=== PATIENT | male | born 1935 | race Caucasian/White ===

== ENCOUNTER → 2018-12-16 | Outpatient (CLI) | payer MEDICARE ==
[2018-12-16 12:19] LABS: Basophils # (auto) 0 uL; Basophils % (auto) 0.6 % (0.0-2.0); Eosinophils # (auto) 0.1 uL; Eosinophils % (auto) 1.2 % (0.0-7.0); Hemoglobin 15.9 g/dL (13.5-17.5); Lymphocytes # (auto) 1.2 uL; Mean Corpuscular Hemoglobin 30.3 pg (28.0-32.0); Mean Corpuscular Hgb Conc. 33.8 g/dL (32.0-36.0); Mean Corpuscular Volume 89.8 fL (80.0-100.0); Monocytes # (auto) 0.5 uL; Monocytes % (auto) 6.5 % (0.0-12.0); Neutrophils # (auto) 5.6 uL; Neutrophils % (auto) 75.7 % (37.0-80.0); Nucleated Red Blood Cells % 0.2 %; Platelet Count (auto) 247 10^3/uL (140-450); Red Blood Cells 5.23 10^6/uL (4.5-5.90); Red Cell Distribution Width 15.5 % (11.8-14.3); White Blood Cell 7.3 10^3/uL (4.4-10.8)
[2018-12-16 12:32] LABS: INR 1.01 (0.9-1.15); Prothrombin Time 10.8 sec (9.27-12.13)
[2018-12-16 13:15] LABS: Potassium 4.3 mmol/L (3.5-5.1)
[2018-12-16 13:34] LABS: Albumin 4.1 g/dL (3.4-5.0); Bilirubin, Total 0.8 mg/dL (0.2-1.0); Calcium 9.1 mg/dL (8.5-10.1); Total Protein 7.3 g/dL (6.4-8.2)
== END | disposition home or self-care (01) ==
LOC: LAB 10:40
PROVIDERS: ATTEND Internal Medicine
DX: Z01.818 Encounter for other preprocedural examination (principal); E11.9 Type 2 diabetes mellitus without complications; I10 Essential (primary) hypertension; I45.10 Unspecified right bundle-branch block; R00.2 Palpitations
CPT/HCPCS: 36415; 80053; 80061; 83036; 84443; 85025; 85610; 85730

== ENCOUNTER → 2018-12-31 | Outpatient (CLI) | payer MEDICARE ==
[~2018-12-31] VITALS: Ht 188 cm; Wt 94.3 kg
== END | disposition home or self-care (01) ==
LOC: Rad HDHVI 12:52
PROVIDERS: ATTEND Internal Medicine Cardiovascular Disease
DX: R94.31 Abnormal electrocardiogram [ECG] [EKG] (principal)
CPT/HCPCS: 78452; 93017; 96374; A9500

== ENCOUNTER → 2019-01-05 | Outpatient (CLI) | payer MEDICARE | END | disposition home or self-care (01) | LOC: Rad HDHVI 13:08 | PROVIDERS: ATTEND Internal Medicine Cardiovascular Disease | DX: R94.31 Abnormal electrocardiogram [ECG] [EKG] (principal); I11.9 Hypertensive heart disease without heart failure | CPT/HCPCS: 93306; 93880 ==

== ENCOUNTER → 2019-01-28 | Outpatient (CLI) | payer MEDICARE ==
[2019-01-28 14:35] LABS: BUN/Creatinine Ratio 13.7; Calcium 9.1 mg/dL (8.5-10.1); Potassium 4.1 mmol/L (3.5-5.1)
== END | disposition home or self-care (01) ==
LOC: LAB 11:25
PROVIDERS: ATTEND Internal Medicine
DX: E11.9 Type 2 diabetes mellitus without complications (principal)
CPT/HCPCS: 36415; 80048

== ENCOUNTER → 2019-04-20 | Outpatient (CLI) | payer MEDICARE | END | disposition home or self-care (01) | LOC: LAB 10:35 | PROVIDERS: ATTEND Internal Medicine | DX: E11.9 Type 2 diabetes mellitus without complications (principal) | CPT/HCPCS: 82043 ==

== ENCOUNTER → 2019-07-25 | Outpatient (CLI) | payer MEDICARE ==
[2019-07-25 13:05] LABS: Urine Amorphous Crystal MOD /hpf (None Seen); Urine Bacteria NONE SEEN /hpf (None Seen); Urine Blood 1+ /uL (Negative); Urine Mucus FEW (None Seen); Urine Specific Gravity 1.016 (1.001-1.035); Urine WBC 7 /hpf (0 - 3)
== END | disposition home or self-care (01) ==
LOC: LAB 12:31
PROVIDERS: ATTEND Internal Medicine
DX: E11.9 Type 2 diabetes mellitus without complications (principal); I45.10 Unspecified right bundle-branch block; I11.0 Hypertensive heart disease with heart failure; I50.33 Acute on chronic diastolic (congestive) heart failure
CPT/HCPCS: 36415; 81001; 83036; 83880

== ENCOUNTER → 2019-09-23 | Outpatient (CLI) | payer MEDICARE ==
[2019-09-23 12:00] LABS: Urine Bacteria NONE SEEN /hpf (None Seen); Urine Blood Negative /uL (Negative); Urine Specific Gravity 1.011 (1.001-1.035); Urine WBC 3 /hpf (0 - 3)
== END | disposition home or self-care (01) ==
LOC: LAB 11:06
PROVIDERS: ATTEND Internal Medicine
DX: N40.0 Benign prostatic hyperplasia without lower urinary tract symptoms (principal)
CPT/HCPCS: 81001; 84153; 84154

== ENCOUNTER → 2019-10-07 | Outpatient (CLI) | payer MEDICARE | END | disposition home or self-care (01) | LOC: LAB 07:19 | PROVIDERS: ATTEND Urology | DX: R31.9 Hematuria, unspecified (principal); N32.0 Bladder-neck obstruction; N32.89 Other specified disorders of bladder | CPT/HCPCS: 87086 ==

== ENCOUNTER → 2019-11-28 | Outpatient (CLI) | payer MEDICARE | END | disposition home or self-care (01) | LOC: Rad HDHVI 12:51 | PROVIDERS: ATTEND Internal Medicine Cardiovascular Disease | DX: I45.10 Unspecified right bundle-branch block (principal); I10 Essential (primary) hypertension; R06.02 Shortness of breath | CPT/HCPCS: 93306 ==

== ENCOUNTER → 2019-11-29 | Outpatient (CLI) | payer MEDICARE ==
[2019-11-29 14:17] LABS: Basophils # (auto) 0.1 10 ^3/uL (0-0.2); Eosinophils # (auto) 0.2 10 ^3/uL (0-0.8); Eosinophils % (auto) 3.2 % (0.0-7.0); Hematocrit 41.9 % (41.0-53.0); Hemoglobin 14.6 g/dL (13.5-17.5); Lymphocytes # (auto) 1.4 10 ^3/uL (0.4-5.4); Lymphocytes % (auto) 23.9 % (10.0-50.0); Mean Corpuscular Hemoglobin 31.1 pg (28.0-32.0); Mean Corpuscular Hgb Conc. 34.9 g/dL (32.0-36.0); Mean Corpuscular Volume 89.3 fL (80.0-100.0); Monocytes # (auto) 0.5 10 ^3/uL (0-1.3); Monocytes % (auto) 7.6 % (0.0-12.0); Neutrophils # (auto) 3.9 10 ^3/uL (1.6-8.6); Neutrophils % (auto) 64.3 % (37.0-80.0); Platelet Count (auto) 244 10^3/uL (140-450); Red Blood Cells 4.69 10^6/uL (4.5-5.90); Red Cell Distribution Width 15.2 % (11.8-14.3)
[2019-11-29 14:43] LABS: Albumin 3.7 g/dL (3.4-5.0); Bilirubin, Direct 0.1 mg/dL (0-0.2); Calcium 8.7 mg/dL (8.5-10.1); Potassium 4.1 mmol/L (3.5-5.1)
[2019-11-29 14:46] LABS: Bilirubin, Total 0.4 mg/dL (0.2-1.0); Total Protein 6.8 g/dL (6.4-8.2)
== END | disposition home or self-care (01) ==
LOC: LAB 13:57
PROVIDERS: ATTEND Urology
DX: E11.9 Type 2 diabetes mellitus without complications (principal); I10 Essential (primary) hypertension; N32.0 Bladder-neck obstruction; N32.89 Other specified disorders of bladder; R31.9 Hematuria, unspecified
CPT/HCPCS: 36415; 80048; 80076; 82043; 83036; 84153; 85025

== ENCOUNTER → 2020-01-16 | Outpatient (CLI) | payer MEDICARE ==
[~2020-01-16] MED LIST: ASPI81CH43 PO; CHOL20007 OR; ENAL2.5T7 PO; FINA5TAB4 PO; MAGN400T40 OR; TAM04C PO
[2020-01-16 11:54] LABS: Urine Bacteria NONE SEEN /hpf (None Seen); Urine Blood Negative /uL (Negative); Urine Hyaline Cast MOD /lpf (0 - 2); Urine Mucus FEW (None Seen); Urine Specific Gravity 1.013 (1.001-1.035); Urine WBC 2 /hpf (0 - 3)
[2020-01-16 12:20] LABS: Cholesterol 149 mg/dL (< 200); HDL Cholesterol 42 mg/dL (40-59); LDL Cholesterol 84 mg/dL (< 100); Triglycerides 134 mg/dL (< 150)
== END | disposition home or self-care (01) ==
LOC: LAB 11:20
PROVIDERS: ATTEND Internal Medicine
DX: I12.9 Hypertensive chronic kidney disease with stage 1 through stage 4 chronic kidney disease, or unspecified chronic kidney disease (principal); R73.03 Prediabetes; N18.3 Chronic kidney disease, stage 3 (moderate)
CPT/HCPCS: 36415; 80061; 81001

== ENCOUNTER → 2020-02-13 | Outpatient (CLI) | payer MEDICARE ==
[~2020-02-13] VITALS: Ht 188 cm; Wt 98.0 kg
[~2020-02-13] MED LIST changes: +ADENOSINE 82 MG in GIVE UN-DILUTED 0 ML IV ONE; +ADENOSINE 90 MG/30 ML INJ IV ONE; -ASPI81CH43 PO; -CHOL20007 OR; -ENAL2.5T7 PO; -FINA5TAB4 PO; -MAGN400T40 OR; -TAM04C PO
== END | disposition home or self-care (01) ==
LOC: Rad HDHVI 13:48
PROVIDERS: ATTEND Internal Medicine Cardiovascular Disease
DX: I11.0 Hypertensive heart disease with heart failure (principal); I50.33 Acute on chronic diastolic (congestive) heart failure
CPT/HCPCS: 78452; 93005; 96374; 96375; A9500; J0153

== ENCOUNTER → 2020-05-28 | Outpatient (CLI) | payer MEDICARE | END | disposition home or self-care (01) | LOC: LAB 10:57 | PROVIDERS: ATTEND Urology | DX: N40.0 Benign prostatic hyperplasia without lower urinary tract symptoms (principal) | CPT/HCPCS: 84153; 84154 ==

== ENCOUNTER 2020-06-12 15:23 | Inpatient (IN) | payer MEDICARE ==
[~2020-06-12] VITALS: Ht 188 cm; Wt 101.6 kg
[2020-06-12] MEDS ORDERED: ASPirin 81 mg TAB PO ONE (15:45)
[2020-06-12] MEDS ORDERED: SODIUM CHLORIDE 0.9% 1,000 ML IV ONE (15:45)
[2020-06-12 16:07] LABS: Urine Bacteria NONE SEEN /hpf (None Seen); Urine Blood Negative /uL (Negative); Urine Hyaline Cast FEW /lpf (0 - 2); Urine Mucus FEW (None Seen); Urine Specific Gravity 1.014 (1.001-1.035); Urine WBC 4 /hpf (0 - 3)
[2020-06-12] MEDS ORDERED: METOPROLOL TARTRATE 1MG/1ML-5ML VIAL IV ONE (16:15)
[2020-06-12] MEDS ORDERED: METOPROLOL TARTRATE 25 MG TAB PO ONE (16:15)
[2020-06-12 16:24] LABS: Basophils # (auto) 0.1 10 ^3/uL (0-0.2); Basophils % (auto) 0.9 % (0.0-2.0); Eosinophils # (auto) 0.1 10 ^3/uL (0-0.8); Eosinophils % (auto) 1.5 % (0.0-7.0); Hematocrit 43.6 % (41.0-53.0); Lymphocytes % (auto) 14.9 % (10.0-50.0); Mean Corpuscular Hemoglobin 29.9 pg (28.0-32.0); Mean Corpuscular Hgb Conc. 34.4 g/dL (32.0-36.0); Monocytes # (auto) 0.5 10 ^3/uL (0-1.3); Monocytes % (auto) 7.4 % (0.0-12.0); Neutrophils # (auto) 5.2 10 ^3/uL (1.6-8.6); Neutrophils % (auto) 75.3 % (37.0-80.0); Nucleated Red Blood Cells % 0.1 %; Platelet Count (auto) 222 10^3/uL (140-450); Red Blood Cells 5.01 10^6/uL (4.5-5.90)
[2020-06-12 16:37] LABS: Albumin 3.7 g/dL (3.4-5.0); Anion Gap 5 (5-15); Blood Urea Nitrogen 18 mg/dL (7-18); Calcium 8.6 mg/dL (8.5-10.1); Carbon Dioxide 24 mmol/L (21-32); Chloride 111 mmol/L (98-107); Glucose 96 mg/dL (74-106); Potassium 3.9 mmol/L (3.5-5.1); Sodium 140 mmol/L (136-145)
[2020-06-12 16:39] LABS: Alanine Aminotransferase 17 U/L (16-61); Aspartate Aminotransferase 10 U/L (15-37); BUN/Creatinine Ratio 16.7; GFR African American 84 mL/min; GFR Non-African American 70 mL/min
[2020-06-12 16:44] LABS: Alkaline Phosphatase 75 U/L (45-117); Bilirubin, Total 0.8 mg/dL (0.2-1.0); Total Protein 6.3 g/dL (6.4-8.2)
[2020-06-12 16:45] LABS: INR 1.16 (0.9-1.15); Partial Thromboplastin Time 26.5 sec (23.0-31.2)
[2020-06-12] MEDS ORDERED: FUROSEMIDE 20 MG/2 ML VIAL IV ONE (17:45)
[2020-06-12] MEDS ORDERED: NITROGLYCERIN 0.4 MG SL TAB SL PRN (17:45)
[2020-06-12] MEDS ORDERED: MORPHINE SULF INJ 2 MG/ML SYRINGE 1ML IV PRN (17:45)
[2020-06-12] MEDS ORDERED: dilTIAZem HCL 180MG ER CAP PO ONE (17:45)
[2020-06-12] MEDS ORDERED: ENALAPRILAT 1.25 MG/ML-1ML VIAL IV PRN (19:30)
--- NOTE | 2020-06-12 21:03 | NUR ---
pt arrived via w/c from ED. Alert and oriented, walked from the bathroom with no difficulties. Pt is denying and pain or discomfort. No s/s of distress. IV 18 to rt writ patent site benign.
[2020-06-12 21:15] VITALS: BP 135/80
[2020-06-12 22:00] VITALS: BP 135/80
[2020-06-12] MEDS: RAMIPRIL 2.5 MG CAP PO SCH (22:10)
[2020-06-12 23:50] VITALS: BP 135/80
[2020-06-13] MEDS ORDERED: ENAL2.5T7 PO (00:10)
[2020-06-13] MEDS ORDERED: ASPI81CH43 PO (00:10)
[2020-06-13] MEDS ORDERED: FINA5TAB4 PO (00:10)
[2020-06-13] MEDS ORDERED: CHOL20007 OR (00:10)
[2020-06-13] MEDS ORDERED: TAM04C PO (00:10)
[2020-06-13] MEDS ORDERED: MAGN400T40 OR (00:10)
[2020-06-13 05:00] VITALS: BP 146/84
[2020-06-13 05:52] LABS: Basophils # (auto) 0.1 10 ^3/uL (0-0.2); Basophils % (auto) 1.1 % (0.0-2.0); Eosinophils # (auto) 0.2 10 ^3/uL (0-0.8); Eosinophils % (auto) 4.2 % (0.0-7.0); Hematocrit 41.5 % (41.0-53.0); Lymphocytes # (auto) 1.1 10 ^3/uL (0.4-5.4); Lymphocytes % (auto) 19.3 % (10.0-50.0); Mean Corpuscular Hemoglobin 29.4 pg (28.0-32.0); Mean Corpuscular Hgb Conc. 33.8 g/dL (32.0-36.0); Mean Corpuscular Volume 86.9 fL (80.0-100.0); Monocytes # (auto) 0.5 10 ^3/uL (0-1.3); Monocytes % (auto) 9.4 % (0.0-12.0); Neutrophils # (auto) 3.9 10 ^3/uL (1.6-8.6); Nucleated Red Blood Cells % 0.3 %; Platelet Count (auto) 204 10^3/uL (140-450); Red Blood Cells 4.78 10^6/uL (4.5-5.90); Red Cell Distribution Width 15.4 % (11.8-14.3); White Blood Cell 5.8 10^3/uL (4.4-10.8)
[2020-06-13 06:07] LABS: Calcium 8.3 mg/dL (8.5-10.1); Potassium 3.7 mmol/L (3.5-5.1)
[2020-06-13 06:10] LABS: BUN/Creatinine Ratio 18.2
--- NOTE | 2020-06-13 08:00 | NUR ---
RECEIVED PATIENT ALERT AND ORIENTED X4, NOT IN DISTRESS, CLEAR SOUNDS IN BILATERAL LUNG LOBES, RR=18 SAT=97%, DEEP BREATHING AND COUGHING ENCOURAGED, DEMONSTRATED AND VERBALIZED UNDERSTANDING, DENIED SOB AND CHEST PAIN, HEART SJDC=771 A FIB ON TELE MONITOR, ABDOMEN SOFT WITH ACTIVE BS, LAST BM=06/12/20 REPORTED, SKIN INTACT WARM TO TOUCH, RESTING ON BED, HEAD OF BED ELEVATED, BED ON LOW POSITION, RAILS UP X2, CALL LIGHT ON REACH, PENDING ECHO AND CARDIAC CONSULT ORDERED, WILL CONTINUE MONITORING.
[2020-06-13 09:00] VITALS: BP 161/101
[2020-06-13] MEDS ORDERED: PANTOPRAZOLE 40 MG TAB PO SCH (10:00)
[2020-06-13] MEDS ORDERED: FINASTERIDE 5 MG TAB PO SCH (10:00)
[2020-06-13] MEDS ORDERED: dilTIAZem HCL 180MG ER CAP PO SCH (10:00)
[2020-06-13] MEDS ORDERED: ASPirin 81 mg TAB PO SCH (10:00)
[2020-06-13] MEDS: RAMIPRIL 2.5 MG CAP PO SCH (10:05)
--- NOTE | 2020-06-13 13:00 | NUR ---
DR. BLACK WAS PAGED FOR CARDIAC CONSULT FOLLOW UP, WAITING FOR CALL BACK, NOT IN DISTRESS, DENIED PAIN, PENDING ECHO RESULT, WILL CONTINUE MONITORING.
[2020-06-13 13:34] VITALS: BP 154/97
--- NOTE | 2020-06-13 16:26 | NUR ---
CONCERNED ABOUT PET CATS AT HOME, WAITING FOR DR. BLACK, DR. BLACK WILL SEE THE PATENT TODAY REPORTED, WILL CONTINUE MONITORING.
[2020-06-13 17:15] VITALS: BP 159/98
--- NOTE | 2020-06-13 17:44 | NUR ---
CARDIAC CONSULT BY DR. BLACK DONE, PENDING D/C HOME, WILL FOLLOW UP WITH DR. BLACK OUT PATIENT ORDERED, [facility] [place] [id number] [address], LUCILA ZAMARRIPA CONTACTED ON [phone] FOR NEW MEDICATION SOTALOL PO BID ORDERED, INFORMATION REPEATED AND CLARIFIED, VERBALIZED UNDERSTANDING, WILL CONTINUE MONITORING.
[2020-06-13] MEDS ORDERED: RIVAROXABAN 20 MG TAB PO SCH (18:00)
[2020-06-13 18:17] VITALS: BP 143/85
--- NOTE | 2020-06-13 19:01 | NUR ---
D/C INSTRUCTIONS AND EDUCATION PROVIDED, PATIENT DEMOGRAPHICS PROVIDED TO [facility] REQUESTED, HOME HEALTH WILL CONTACT PATIENT IN AM REPORTED, D/C IV SITE AND TELE MONITOR, TOLERATED WELL, NOT IN DISTRESS, DENIED PAIN, VS T=98.2 RR=18 SAT=98% P=72 DO=712/83, WC PROVIDED, D/C HOME WALKING, TOOK ALL BELONGINGS AND LEFT NOTHING BEHIND.
--- NOTE | 2020-06-13 19:06 | NUR ---
1850 HOME MEDICATION FROM PHARMACY WAS GIVEN BACK , TOLERATED 100% OF PROVIDED DINNER TRAY, PENDING D/C.
[2020-06-13] MEDS ORDERED: SOTALOL HCL 80 MG TAB PO SCH (22:00)
== END 2020-06-13 19:00 | disposition home or self-care (01) | DRG 309 ==
LOC: ER 15:23 → TELE 15:24 → TELE-WESTW 21:04
PROVIDERS: ADMIT Nurse Practitioner Acute Care; ATTEND Family Medicine
DX: I48.91 Unspecified atrial fibrillation (principal); I16.1 Hypertensive emergency; D68.69 Other thrombophilia; I50.32 Chronic diastolic (congestive) heart failure; I48.92 Unspecified atrial flutter; I45.2 Bifascicular block; I11.0 Hypertensive heart disease with heart failure; I67.2 Cerebral atherosclerosis; N40.0 Benign prostatic hyperplasia without lower urinary tract symptoms; Z79.82 Long term (current) use of aspirin; Z87.891 Personal history of nicotine dependence; Z79.899 Other long term (current) drug therapy
CPT/HCPCS: 36415; 70450; 71045; 80048; 80053; 80061; 81001; 83880; 84443; 84484; 85025; 85610; 85730; 87086; 93005; 93306; 96361; 96374; 96375; 99291; G0378

== ENCOUNTER 2020-08-14 12:01 | Emergency (ER) | payer MEDICARE ==
[~2020-08-14] VITALS: Ht 188 cm; Wt 108.9 kg
[~2020-08-14 12:01] MED LIST changes: -ADENOSINE 82 MG in GIVE UN-DILUTED 0 ML IV ONE; -ADENOSINE 90 MG/30 ML INJ IV ONE; +ASPI81CH43 PO; +CHOL20007 OR; +ENAL2.5T7 PO; +FINA5TAB4 PO; +MAGN400T40 OR; +TAM04C PO
[2020-08-14 12:51] VITALS: BP 142/82
== END 2020-08-14 16:15 | disposition left against medical advice (07) ==
LOC: ER 12:01
DX: S22.41XA Multiple fractures of ribs, right side, initial encounter for closed fracture (principal); I10 Essential (primary) hypertension; Z79.82 Long term (current) use of aspirin; Z79.899 Other long term (current) drug therapy; W19.XXXA Unspecified fall, initial encounter; Y93.89 Activity, other specified; Y92.89 Other specified places as the place of occurrence of the external cause; Y99.8 Other external cause status
CPT/HCPCS: 71101; 93970

== ENCOUNTER → 2020-08-27 | Outpatient (CLI) | payer MEDICARE | END | disposition home or self-care (01) | LOC: Rad HDHVI 15:01 | PROVIDERS: ATTEND Internal Medicine Cardiovascular Disease | DX: I50.33 Acute on chronic diastolic (congestive) heart failure (principal); R00.2 Palpitations | CPT/HCPCS: 93306 ==

== ENCOUNTER 2020-12-06 11:25 | Inpatient (IN) | payer MEDICARE ==
[~2020-12-06] VITALS: Ht 188 cm; Wt 109.0 kg
[~2020-12-06 11:25] MED LIST changes: -ASPI81CH43 PO; +DIGO0.12 PO
[2020-12-06] MEDS ORDERED: VANCOMYCIN 1GM/250ML 250 ML IV ONE (12:28)
[2020-12-06] MEDS ORDERED: LIDOCAINE 2%HCL (LOCAL ANESTH.) INJ 20ML MDV ONE (12:43)
[2020-12-06] MEDS ORDERED: VANCOMYCIN HCL 1000 MG VL ONE (14:16)
[2020-12-06] MEDS ORDERED: fentaNYL CITRATE 100 MCG/2 ML VL ONE (14:19)
[2020-12-06] MEDS ORDERED: MIDAZOLAM HCL 1MG/1ML-2 ML VIAL ONE (14:20)
[2020-12-06] MEDS ORDERED: HYDROcodone-ACET 5/325MG TAB PO PRN (15:00)
[2020-12-06] MEDS ORDERED: ACETAMINOPHEN 325 MG TAB PO PRN (15:00)
[2020-12-06] MEDS ORDERED: NITROGLYCERIN 0.4 MG SL TAB SL PRN (15:00)
[2020-12-06] MEDS ORDERED: MORPHINE SULF INJ 2 MG/ML SYRINGE 1ML IV PRN (15:00)
[2020-12-06 17:11] VITALS: BP 174/98
[2020-12-06] MEDS ORDERED: TAMSULOSIN HYDROCHLORIDE 0.4 MG CAP PO SCH (18:00)
[2020-12-06 19:40] VITALS: BP 147/85
[2020-12-06] MEDS: VANCOMYCIN 1GM/250ML 250 ML IV SCH (21:54)
[2020-12-06 22:00] VITALS: BP 147/74
[2020-12-07 05:00] VITALS: BP 142/84
[2020-12-07 08:30] VITALS: BP 163/93
[2020-12-07] MEDS ORDERED: ENALAPRIL MALEATE 2.5 MG TAB PO SCH (10:00)
[2020-12-07] MEDS ORDERED: FINASTERIDE 5 MG TAB PO SCH (10:00)
[2020-12-07] MEDS: VANCOMYCIN 1GM/250ML 250 ML IV SCH (10:44)
[2020-12-07 12:30] VITALS: BP 154/96
[2020-12-07 17:05] VITALS: BP 162/96
[2020-12-07 17:09] VITALS: BP 162/96
[2020-12-08] MEDS ORDERED: DIGOXIN 0.125 MG TAB PO SCH (10:00)
== END 2020-12-07 17:45 | disposition home health service (06) | DRG 243 ==
LOC: CATH 11:25 → TELE 11:26 → TELE-WESTW 16:13
PROVIDERS: ADMIT Internal Medicine Cardiovascular Disease; ATTEND Internal Medicine Cardiovascular Disease
PROC: 0JH606Z Insertion of Pacemaker, Dual Chamber into Chest Subcutaneous Tissue and Fascia, Open Approach (ICD-10-PCS; principal; 2020-12-06)
PROC: 02HK3JZ Insertion of Pacemaker Lead into Right Ventricle, Percutaneous Approach (ICD-10-PCS; 2020-12-06)
PROC: 02H63JZ Insertion of Pacemaker Lead into Right Atrium, Percutaneous Approach (ICD-10-PCS; 2020-12-06)
DX: I49.5 Sick sinus syndrome (principal); D68.59 Other primary thrombophilia; I48.0 Paroxysmal atrial fibrillation; R55 Syncope and collapse; E78.5 Hyperlipidemia, unspecified; I10 Essential (primary) hypertension; I25.10 Atherosclerotic heart disease of native coronary artery without angina pectoris; Z91.81 History of falling; Z20.822 Contact with and (suspected) exposure to COVID-19
CPT/HCPCS: 33208; 71045; 93005; 99152; 99153; C1785; G0378; J2250

== ENCOUNTER → 2021-01-08 | Outpatient (CLI) | payer MEDICARE | END | disposition home or self-care (01) | LOC: Rad HDHVI 10:00 | PROVIDERS: ATTEND Internal Medicine Cardiovascular Disease | DX: R00.2 Palpitations (principal); R06.02 Shortness of breath | CPT/HCPCS: 93306 ==

== ENCOUNTER → 2021-04-26 | Outpatient (CLI) | payer MEDICARE ==
[2021-04-26 14:25] LABS: Basophils # (auto) 0.1 10 ^3/uL (0-0.2); Basophils % (auto) 0.7 % (0.0-2.0); Eosinophils # (auto) 0.1 10 ^3/uL (0-0.8); Eosinophils % (auto) 0.8 % (0.0-7.0); Hematocrit 40.6 % (41.0-53.0); Hemoglobin 13.8 g/dL (13.5-17.5); Lymphocytes # (auto) 0.9 10 ^3/uL (0.4-5.4); Lymphocytes % (auto) 11.7 % (10.0-50.0); Mean Corpuscular Hemoglobin 30.7 pg (28.0-32.0); Mean Corpuscular Hgb Conc. 34.1 g/dL (32.0-36.0); Mean Corpuscular Volume 89.9 fL (80.0-100.0); Monocytes # (auto) 0.6 10 ^3/uL (0-1.3); Monocytes % (auto) 7.9 % (0.0-12.0); Neutrophils # (auto) 6.2 10 ^3/uL (1.6-8.6); Neutrophils % (auto) 78.9 % (37.0-80.0); Red Blood Cells 4.51 10^6/uL (4.5-5.90); Red Cell Distribution Width 16.1 % (11.8-14.3); White Blood Cell 7.9 10^3/uL (4.4-10.8)
[2021-04-26 14:35] LABS: Potassium 4.8 mmol/L (3.5-5.1)
[2021-04-26 14:42] LABS: BUN/Creatinine Ratio 10.5; Calcium 8.7 mg/dL (8.5-10.1)
[2021-04-26 14:50] LABS: Free T4 (Free Thyroxine) 1.74 ng/dL (0.89-1.76)
[2021-04-26 14:51] LABS: Prostate Specific Antigen 8.32 ng/mL (0.0-4.0)
== END | disposition home or self-care (01) ==
LOC: Rad HDHVI 12:25
PROVIDERS: ATTEND Internal Medicine Cardiovascular Disease
DX: C61 Malignant neoplasm of prostate (principal); M47.812 Spondylosis without myelopathy or radiculopathy, cervical region; M50.33 Other cervical disc degeneration, cervicothoracic region; M50.23 Other cervical disc displacement, cervicothoracic region; M48.02 Spinal stenosis, cervical region; M25.78 Osteophyte, vertebrae; D51.3 Other dietary vitamin B12 deficiency anemia; I10 Essential (primary) hypertension; E11.9 Type 2 diabetes mellitus without complications; E55.9 Vitamin D deficiency, unspecified; D64.9 Anemia, unspecified; R00.2 Palpitations; R53.1 Weakness; R30.0 Dysuria; J43.9 Emphysema, unspecified
CPT/HCPCS: 36415; 72125; 80048; 80061; 80162; 82607; 83036; 84153; 84154; 84403; 84439; 84443; 85025